=== PATIENT | female | born 1945 | race Caucasian/White ===

== ENCOUNTER → 2016-11-09 | Outpatient (CLI) | payer MEDICARE ==
[2016-11-09 13:56] LABS: ALKALINE PHOSPHATASE 69 U/L (45-117); ALT (GPT) 25 U/L (10-53); ANION GAP 9 MEQ/L (5-15); AST (GOT) 16 U/L (15-37); BICARBONATE 27.6 MEQ/L (21.0-32.0); BLOOD UREA NITROGEN 17 MG/DL (7-18); CHLORIDE 104 MEQ/L (98-107); GLOMERULAR FILTRATION RATE 53 ML/MIN (>89); GLUCOSE,FASTING 102 MG/DL (74-99); LDL CHOLESTEROL 72 MG/DL (0-99); POTASSIUM 3.9 MEQ/L (3.5-5.1); SODIUM (NA) 141 MEQ/L (136-145); TOTAL BILIRUBIN ADULT 0.6 MG/DL (0.2-1.0)
== END ==
LOC: PLAB 09:00
PROVIDERS: ATTEND Family Medicine
DX: I10 Essential (primary) hypertension (principal); E78.2 Mixed hyperlipidemia
CPT/HCPCS: 36415; 80053; 80061

== ENCOUNTER → 2017-05-10 | Outpatient (CLI) | payer MEDICARE ==
[2017-05-10 13:45] LABS: ANION GAP 8 MEQ/L (5-15); AST (GOT) 19 U/L (15-37); BICARBONATE 27.6 MEQ/L (21.0-32.0); BLOOD UREA NITROGEN 16 MG/DL (7-18); CHLORIDE 107 MEQ/L (98-107); GLOMERULAR FILTRATION RATE 54 ML/MIN (>89); POTASSIUM 3.9 MEQ/L (3.5-5.1); SODIUM (NA) 143 MEQ/L (136-145)
[2017-05-10 13:52] LABS: ALKALINE PHOSPHATASE 68 U/L (45-117); ALT (GPT) 26 U/L (10-53); GLUCOSE,FASTING 95 MG/DL (74-99); HDL CHOLESTEROL 70.6 MG/DL (40.0-60.0); LDL CHOLESTEROL 74 MG/DL (0-99); TOTAL BILIRUBIN ADULT 0.7 MG/DL (0.2-1.0)
== END ==
LOC: PLAB 08:37
PROVIDERS: ATTEND Family Medicine
DX: I10 Essential (primary) hypertension (principal); E78.2 Mixed hyperlipidemia
CPT/HCPCS: 36415; 80053; 80061

== ENCOUNTER 2017-08-12 14:52 | Emergency (ER) | payer MEDICARE ==
[~2017-08-12] VITALS: Ht 162.6 cm; Wt 69.4 kg
[2017-08-12 14:55] VITALS: BP 197/89; PULSE 74; RESP 18; TEMP 98; O2SAT 98
--- NOTE | 2017-08-12 15:22 | PD ---
HPI Chief Complaint: Flank/Kidney Pain Time Seen by Provider: 15:09 Travel History International Travel<30 days: No Contact w/Intl Traveler<30days: No Traveled to known affect area: No History of Present Illness HPI The patient was seen and examined in the presence of the nurse. This patient complains of left flank pain. Duration 10 days. It is intermittent. She has history of kidney stone many many years ago and she says this feels similar and thinks she may have a kidney stone. She denies hematuria or dysuria or fever or injury. Symptoms severity is moderate. No alleviating factors. No Exacerbating factors. PFSH Past Medical History ?: Not Social History Alcohol Use: No Tobacco Use: No Substance Use: No Allergies-Medications (Allergen,Severity, Reaction): Coded Allergies: nut - unspecified (Verified Allergy, Severe, Anaphylaxis, 08/12/17) Penicillins (Verified Allergy, Intermediate, HIVES, 08/12/17) Reported Meds & Prescriptions Reported Meds & Active Scripts Active Flomax (Tamsulosin HCl) 0.4 Mg Cap 0.4 Mg PO HS Zofran (Ondansetron HCl) 4 Mg Tab 4 Mg PO Q6HR PRN Percocet (Oxycodone-Acetaminophen) 5-325 mg Tab 1 Tab PO Q6H PRN Reported Fish Oil ([place]-3 Fatty Acids) 60 Mg-90 Mg-500 Mg Cap Unknown Dose PO DAILY Multi-Vitamin Daily (Multiple Vitamin) 1 Tab Tab 1 Tab PO DAILY Crestor (Rosuvastatin Calcium) 5 Mg Tab Unknown Dose PO DAILY Hydrochlorothiazide 12.5 Mg Cap 12.5 Mg PO DAILY Metoprolol Tartrate 75 Mg Tab 75 Mg PO DAILY Review of Systems General / Constitutional: No: Fever Eyes: No: Visual changes HENT: No: Headaches Cardiovascular: No: Chest Pain or Discomfort Respiratory: No: Shortness of Breath Gastrointestinal: No: Abdominal Pain Genitourinary: Positive: Flank Pain, No: Dysuria Musculoskeletal: No: Pain Skin: No Rash Neurologic: No: Weakness Psychiatric: No: Depression Endocrine: No: Polydipsia Hematologic/Lymphatic: No: Easy Bruising Physical Exam Narrative GENERAL: Well-nourished, well-developed patient in no apparent distress. SKIN: Focused skin assessment reveals no rash and nodules. Skin is Warm and dry. HEAD: Atraumatic. Normocephalic. EYES: Pupils equal and round. No scleral icterus. No injection or drainage. ENT: No nasal bleeding or discharge. Mucous membranes pink and moist. NECK: Trachea midline. No JVD. CARDIOVASCULAR: Regular rate and rhythm. No murmur appreciated. RESPIRATORY: No accessory muscle use. Clear to auscultation. Breath sounds equal bilaterally. GASTROINTESTINAL: Abdomen soft, non-tender, nondistended. Hepatic and splenic margins not palpable. MUSCULOSKELETAL: No obvious deformities. No clubbing. No cyanosis. No edema. No midline tenderness of the back NEUROLOGICAL: Awake and alert. No obvious cranial nerve deficits. Motor grossly within normal limits. Normal speech. PSYCHIATRIC: Appropriate mood and affect; insight and judgment normal. Data Data Last Documented VS Vital Signs Date Time Temp Pulse Resp B/P (MAP) Pulse Ox O2 Delivery O2 Flow Rate FiO2 08/12/17 15:32 171/82 (111) 08/12/17 14:55 98.0 74 18 98 Orders Orders Urinalysis - C+S If Indicated (08/12/17 15:18) Ct Abd/Pel W/O Iv Contrast (08/12/17 ) Ondansetron Inj (Zofran Inj) (08/12/17 16:00) Morphine Inj (Morphine Inj) (08/12/17 16:00) Ketorolac Inj (Toradol Inj) (08/12/17 16:00) Labs Laboratory Tests Test 08/12/17 15:20 [facility] Medical Decision Making Medical Screen Exam Complete: Yes Emergency Medical Condition: Yes Medical Record Reviewed: Yes Differential Diagnosis Kidney stone, sciatica, lumbar strain Narrative Course I have reviewed the patient's electronic medical record. Urinalysis is running and I will review her for infection and treat if indicated CT of abdomen and pelvis shows a left sided ureteral stone with some hydronephrosis. Patient arrived with accelerated hypertension came down spontaneously to 170 systolic. I gave her injection of Toradol and morphine and Zofran for symptom relief Prescriptions written for pain medicine and nausea medicine and Flomax She has an appointment with the urologist for one week. I advised her to call their tomorrow to report today's findings and see if they want to move the appointment Diagnosis Primary Impression: Kidney stone on left side Additional Instructions: The patient was advised to follow up with urologist . The patient was warned about potential sedation for the medications they will receive on prescription. Med/Other Pt SpecificInfo: Prescription(s) given Scripts Tamsulosin (Flomax) 0.4 Mg Cap 0.4 MG PO HS for Manage Prostate Problems, #10 CAP 0 Refills Prov: Von Gibbons MD 08/12/17 Ondansetron (Zofran) 4 Mg Tab 4 MG PO Q6HR Y for NAUSEA OR VOMITING, #14 TAB 0 Refills Prov: Von Gibbons MD 08/12/17 Oxycodone-Acetaminophen (Percocet) 5-325 mg Tab 1 TAB PO Q6H Y for PAIN, #25 TAB 0 Refills Prov: Von Gibbons MD 08/12/17 Disposition: 01 DISCHARGE HOME Condition: Stable Von Gibbons MD Aug 12, 2017 15:22
[2017-08-12 15:32] VITALS: BP 171/82
[2017-08-12] MEDS ORDERED: HYDR12.57 PO (15:35)
[2017-08-12] MEDS ORDERED: FISH500C PO (15:35)
[2017-08-12] MEDS ORDERED: MULT-65 PO (15:35)
[2017-08-12] MEDS ORDERED: ROSU5 PO (15:35)
[2017-08-12] MEDS ORDERED: METO-426 PO (15:35)
--- NOTE | 2017-08-12 15:44 | RADRPT ---
EXAM DATE/TIME: 08/12/2017 15:29 [facility] COMPARISON: No previous studies available for comparison. INDICATIONS : Left flank pain. History of kidney stones. ORAL CONTRAST: No oral contrast ingested. RADIATION DOSE: 12.80 CTDIvol (mGy) MEDICAL HISTORY : Hypertension. Hypercholesterolemia. Renal calculi. SURGICAL HISTORY : section. ENCOUNTER: Initial ACUITY: 2 weeks PAIN SCALE: 6/10 LOCATION: Left flank TECHNIQUE: Volumetric scanning of the abdomen and pelvis was performed. Using automated exposure control and ad justment of the mA and/or kV according to patient size, radiation dose was kept as low as reasonably achievable to obtain optimal diagnostic quality images. DICOM format image data is available electro nically for review and comparison. FINDINGS: LOWER LUNGS: The visualized lower lungs are clear. LIVER: Homogeneous density without lesion. There is no dilation of the biliary tree. No calcified gallston es. SPLEEN: Normal size without lesion. PANCREAS: Within normal limits. KIDNEYS: Scattered sub-3 mm stones are seen of both kidneys. On the left, there is a 4 x 6 x 5 mm stone in the proximal left ureter at the level of L3/L4. This causes mild to moderate hydronephrosis and proximal hydroureter. A 12 mm benign cyst is seen of the left lower pole. ADRENAL GLANDS: Within normal limits. VASCULAR: There is no aortic aneurysm. BOWEL/MESENTERY: The stomach, small bowel, and colon demonstrate no acute abnormality. There is no free intraperitone al air or fluid. ABDOMINAL WALL: Within normal limits. RETROPERITONEUM: There is no lymphadenopathy. BLADDER: No wall thickening or mass. REPRODUCTIVE: A few small calcified uterine fibroids are noted. No adnexal mass. No free fluid. INGUINAL: There is no lymphadenopathy or hernia. MUSCULOSKELETAL: No acute bony abnormality demonstrated. CONCLUSION: 1. 4 x 6 x 5 mm stone at the proximal left ureter causing mild to moderate obstructive uropathy. The stone is at the level of L3/L4 and can be seen on the initial appliance repair technician radiograph. Skin to stone distanc e measures approximately 9 cm left posterolateral. 2. Multiple small nonobstructing scattered stones of both kidneys. Hernan Joyner MD on August 12, 2017 at 15:39 Board Certified Radiologist. This report was verified electronically.
[2017-08-12] MEDS ORDERED: ZOFR4TAB PO (15:57)
[2017-08-12] MEDS ORDERED: TAMS5CAP PO (15:57)
[2017-08-12] MEDS ORDERED: PERC5TAB12 PO (15:57)
[2017-08-12] MEDS ORDERED: ONDANSETRON HCL 4 MG/2 ML VIAL IM ONE (16:00)
[2017-08-12] MEDS ORDERED: KETOROLAC TROMETHAMINE 60 MG/2 ML (IM) VIAL IM ONE (16:00)
[2017-08-12] MEDS ORDERED: MORPHINE SULFATE 4 MG/ML INJ IM ONE (16:00)
[2017-08-12 16:04] LABS: BLOOD, URINE MOD (NEG); GLUCOSE,URINE NEG (NEG); KETONE, URINE TRACE mg/dL (NEG); NITRITE,URINE NEG (NEG)
[2017-08-12 16:10] LABS: BACTERIA, URINE FEW /hpf; COMMENT (UR) CULTURE INDICATED; CULTURE IF INDICATED CULTURE INDICATED; METHOD OF COLLECTION CLEAN CATCH; SQUAMOUS EPITHELIAL CELL URINE 0-5 /hpf (0-5); URINE COLOR YELLOW (YELLW/STRAW); WBC, URINE 15-19 /hpf (0-5)
[2017-08-12] MEDS ORDERED: CIPR-9 PO (16:30)
== END 2017-08-12 16:37 | disposition home or self-care (01) ==
LOC: PHED 14:52
DX: N20.0 Calculus of kidney (principal); I10 Essential (primary) hypertension; Z87.442 Personal history of urinary calculi
CPT/HCPCS: 74176; 81001; 87086; 96372; 99285; J1885; J2405

== ENCOUNTER 2017-08-17 21:28 | Emergency (ER) | payer MEDICARE ==
[~2017-08-17] VITALS: Ht 160 cm; Wt 0.8 kg
[~2017-08-17 21:28] MED LIST: CIPR-9 PO; FISH500C PO; HYDR12.57 PO; METO-426 PO; MULT-65 PO; PERC5TAB12 PO; ROSU5 PO; TAMS5CAP PO; ZOFR4TAB PO
[2017-08-17 21:29] VITALS: BP 183/85; PULSE 95; RESP 20; TEMP 97.9; O2SAT 97
--- NOTE | 2017-08-17 22:08 | PD ---
HPI Chief Complaint: Allergic/Adverse Reaction Time Seen by Provider: 21:51 Travel History International Travel<30 days: No Contact w/Intl Traveler<30days: No Traveled to known affect area: No History of Present Illness HPI This is a 71 year old female who presents to the emergency department having had a stent placed in her right ureter [address] Pelayo in the setting of a kidney stone. For 2 days she's been taking Bactrim. She is concerned because today she noticed that she had a sore on the right side of her mouth, constant, moderate severity, painful, associated with some dry mouth and throat. She read the package insertion on the Bactrim and she was concerned she may be having an allergic reaction so she came to the emergency department. She denies rash anywhere else PFS Past Medical History High Cholesterol: Yes Diminished Hearing: No Hypertension: Yes Kidney Stones: Yes Immunizations Current: No Tetanus Vaccination: < 5 Years Influenza Vaccination: Yes Past Surgical History Section: Yes Genitourinary Surgery: Yes (lithotripsy with stent placement) Other Surgery: Yes (LEFT BREAST BIOPSY - BENIGN) Social History Alcohol Use: No Tobacco Use: No Substance Use: No Allergies-Medications (Allergen,Severity, Reaction): Coded Allergies: nut - unspecified (Verified Allergy, Severe, Anaphylaxis, 08/17/17) Penicillins (Verified Allergy, Intermediate, HIVES, 08/17/17) Reported Meds & Prescriptions Reported Meds & Active Scripts Active Reported Fish Oil ([place]-3 Fatty Acids) 60 Mg-90 Mg-500 Mg Cap Unknown Dose PO DAILY Multi-Vitamin Daily (Multiple Vitamin) 1 Tab Tab 1 Tab PO DAILY Crestor (Rosuvastatin Calcium) 5 Mg Tab Unknown Dose PO DAILY Hydrochlorothiazide 12.5 Mg Cap 12.5 Mg PO DAILY Metoprolol Tartrate 75 Mg Tab 75 Mg PO DAILY Review of Systems Except as stated in HPI: all other systems reviewed are Neg Physical Exam Narrative GENERAL:Well appearing, no acute distress SKIN: No rash. HEAD: Atraumatic. Normocephalic. EYES: Pupils equal and round. No injection or drainage. ENT: Moist mucous membranes. Small transparent ulcer on the right upper lip mucosa. No ulcerations along the posterior pharynx or tongue. NECK: Trachea midline. CARDIOVASCULAR: Regular rate and rhythm. No murmur appreciated. RESPIRATORY: Clear to auscultation. Breath sounds equal bilaterally. GASTROINTESTINAL: Abdomen soft, non-tender, nondistended. MUSCULOSKELETAL: No obvious deformities. NEUROLOGICAL: Awake and alert. No obvious cranial nerve deficits. Moving all extremities. PSYCHIATRIC: Appropriate mood and affect; insight and judgment normal. Data Data Last Documented VS Vital Signs Date Time Temp Pulse Resp B/P (MAP) Pulse Ox O2 Delivery O2 Flow Rate FiO2 08/17/17 21:29 97.9 95 20 183/85 (117) 97 MDM Medical Decision Making Medical Screen Exam Complete: Yes Emergency Medical Condition: Yes Differential Diagnosis Adverse drug reaction, allergic reaction, Kendrick-Price syndrome, TEN, apthous ulcer Narrative Course This is a 71-year-old female who presents to the emergency department having been on Bactrim for 2 days with a lesion in her mouth and some dry mouth. She has evidence of an aphthous ulcer on her lip mucosa. I don't suspect this is an adverse reaction to the Bactrim. She does have ciprofloxacin at home which she was taking prior to being changed to the Bactrim by a physician at the urologist office. I advised her she is concerned she can switch back to ciprofloxacin until she can talk to Dr. Pelayo on Sunday. She has no other signs of allergic reaction. I think she is safe for discharge without other intervention. Diagnosis Primary Impression: Aphthous ulcer of mouth Patient Instructions: General Instructions Additional Instructions: Switch back to Ciprofloxacin from Bactrim until you can discuss your antibiotics with your urologist. If you develop rash, more ulcerations in your mouth or on your genitalia, or shortness of breath or chest pain return to the emergency department. Med/Other Pt SpecificInfo: Existing Med Changed Disposition: 01 DISCHARGE HOME Condition: Stable Eugenia Delgado MD Aug 17, 2017 22:08
[2017-08-17 22:11] VITALS: BP 160/80
== END 2017-08-17 22:19 | disposition home or self-care (01) ==
LOC: PHED 21:28
DX: K12.0 Recurrent oral aphthae (principal); R68.2 Dry mouth, unspecified; I10 Essential (primary) hypertension; E78.00 Pure hypercholesterolemia, unspecified; Z87.442 Personal history of urinary calculi
CPT/HCPCS: 99282

== ENCOUNTER → 2017-11-16 | Outpatient (CLI) | payer MEDICARE ==
[~2017-11-16] MED LIST changes: -CIPR-9 PO; -PERC5TAB12 PO; -TAMS5CAP PO; -ZOFR4TAB PO
[2017-11-16 10:59] LABS: ALBUMIN 3.6 GM/DL (3.4-5.0); AST (GOT) 22 U/L (15-37); BICARBONATE 29.8 MEQ/L (21.0-32.0); BLOOD UREA NITROGEN 19 MG/DL (7-18); CALCIUM 9.3 MG/DL (8.5-10.1); CHLORIDE 105 MEQ/L (98-107); CHOLESTEROL 184 MG/DL (120-200); CREATININE 1.01 MG/DL (0.50-1.00); GLOMERULAR FILTRATION RATE 54 ML/MIN (>89); GLUCOSE,FASTING 98 MG/DL (74-99); SODIUM (NA) 140 MEQ/L (136-145)
[2017-11-16 11:04] LABS: ALKALINE PHOSPHATASE 71 U/L (45-117); ALT (GPT) 22 U/L (10-53); CHOLESTEROL/ HDL RATIO 2.38 RATIO; HDL CHOLESTEROL 77.3 MG/DL (40.0-60.0); LDL CHOLESTEROL 87 MG/DL (0-99); TOTAL BILIRUBIN ADULT 0.6 MG/DL (0.2-1.0); TOTAL PROTEIN 7.2 GM/DL (6.4-8.2); TRIGLYCERIDES 98 MG/DL (42-150)
== END ==
LOC: PLAB 08:42
PROVIDERS: ATTEND Family Medicine
DX: I10 Essential (primary) hypertension (principal); E78.2 Mixed hyperlipidemia
CPT/HCPCS: 36415; 80053; 80061